=== PATIENT | male | born 1930 | race Caucasian/White ===

== ENCOUNTER 2017-05-15 04:36 | Emergency (ER) | payer MEDICARE, OTHER ==
[~2017-05-15] VITALS: Ht 185.4 cm; Wt 72.6 kg
[~2017-05-15 04:36] MED LIST: ALPR0.25; DUTA0.5C11; GEMF600T3; GLIP-218; METF750T; MOME0.1C32; WARF5TAB
[2017-05-15 05:03] LABS: Basophils # (auto) 0 uL; Basophils % (auto) 0.4 % (0.0-2.0); CONDITION Y; Eosinophils # (auto) 0.3 uL; Eosinophils % (auto) 3.3 % (0.0-7.0); Hematocrit 41.4 % (41.0-53.0); Hemoglobin 14.2 g/dL (13.5-17.5); Lymphocytes # (auto) 2.4 uL; Lymphocytes % (auto) 29.4 % (10.0-50.0); Mean Corpuscular Hemoglobin 33.4 pg (28.0-32.0); Mean Corpuscular Hgb Conc. 34.2 g/dL (32.0-36.0); Mean Corpuscular Volume 97.7 fL (80.0-100.0); Mean Platelet Volume 7.4 fL (7.4-10.4); Monocytes # (auto) 0.7 uL; Neutrophils # (auto) 4.9 uL; Neutrophils % (auto) 58.9 % (37.0-80.0); Platelet Count (auto) 232 10^3/uL (140-450); Red Cell Distribution Width 13.8 % (11.6-16.0); White Blood Cell 8.3 10^3/uL (4.4-10.8)
[2017-05-15 05:24] LABS: INR 3.35 (0.9-1.15); Partial Thromboplastin Time 47.8 sec (22.64-33.71)
[2017-05-15 05:27] LABS: Albumin 3.9 g/dL (3.4-5.0); BUN/Creatinine Ratio 33.3; Calcium 8.6 mg/dL (8.5-10.1)
[2017-05-15 05:30] LABS: Bilirubin, Total 0.3 mg/dL (0.2-1.0); Total Protein 7.7 g/dL (6.4-8.2)
[2017-05-15 08:14] VITALS: BP 162/94
== END 2017-05-15 09:05 | disposition home or self-care (01) ==
LOC: ER 04:36
DX: R04.0 Epistaxis (principal); I48.91 Unspecified atrial fibrillation; E11.9 Type 2 diabetes mellitus without complications; I10 Essential (primary) hypertension; Z79.899 Other long term (current) drug therapy; Z79.01 Long term (current) use of anticoagulants
CPT/HCPCS: 36415; 80053; 85025; 85610; 85730